=== PATIENT | male | born 1965 ===

== ENCOUNTER → 2018-12-11 | Outpatient (CLI) | payer OTHER ==
[~2018-12-11] MED LIST: ASPI81CH PO; ATOR20 PO; CHLO25 PO; Diovan Hct 1601 EACH PO; FOLI1 PO; IRBE150 PO; LISHYD1012 PO; LOVA40 PO; Metformin PO; THERA1 EACH PO; THIA100 PO
== END | disposition home or self-care (01) ==
LOC: LAB SHORT 18:02 → LAB 18:02 → LAB SHORT 12-13 18:02
PROVIDERS: Family Medicine
DX: E87.1 Hypo-osmolality and hyponatremia (principal); G72.1 Alcoholic myopathy; R53.83 Other fatigue
CPT/HCPCS: 81050; 82570; 84300

== ENCOUNTER 2023-04-28 08:45 | Day surgery (SDC) | payer OTHER ==
[~2023-04-28] VITALS: Ht 177.8 cm; Wt 82.8 kg
[2023-04-28] MEDS ORDERED: GABA300 (09:31)
[2023-04-28] MEDS ORDERED: GLIP5 (09:31)
[2023-04-28] MEDS ORDERED: OZEMPIC1 MG/0.72 (09:32)
[2023-04-28 11:05] VITALS: BP 118/84
== END 2023-04-28 11:00 | disposition home or self-care (01) ==
LOC: ORSCSDS 08:45
PROVIDERS: Internal Medicine Gastroenterology
PROC: 0DBL8ZX Excision of Transverse Colon, Via Natural or Artificial Opening Endoscopic, Diagnostic (ICD-10-PCS; principal; 2023-04-28 10:15)
DX: Z12.11 Encounter for screening for malignant neoplasm of colon (principal); Z86.010 Personal history of colon polyps; D12.3 Benign neoplasm of transverse colon; K64.4 Residual hemorrhoidal skin tags; E11.9 Type 2 diabetes mellitus without complications; I10 Essential (primary) hypertension; E78.5 Hyperlipidemia, unspecified; K21.9 Gastro-esophageal reflux disease without esophagitis; I34.1 Nonrheumatic mitral (valve) prolapse; E66.3 Overweight; R94.31 Abnormal electrocardiogram [ECG] [EKG]; Z79.82 Long term (current) use of aspirin; Z79.84 Long term (current) use of oral hypoglycemic drugs; Z79.899 Other long term (current) drug therapy
CPT/HCPCS: 82947; 88305; J2704; J7120

== ENCOUNTER → 2024-10-10 | Outpatient (CLI) | payer OTHER ==
[~2024-10-10] MED LIST changes: +GABA300; +GLIP5; +OZEMPIC1 MG/0.72
[2024-10-10 11:59] LABS: BASOPHILS ABSOLUTE AUTO 0.06 K/mm3 (0.00-0.23); BASOPHILS PERCENT AUTO 1 % (0-2); EOSINOPHILS ABSOLUTE AUTO 0.13 K/mm3 (0.00-0.68); EOSINOPHILS PERCENT AUTO 2 % (0-6); Hematocrit 38.5 % (37.0-53.0); Hemoglobin 12.8 g/dL (13.5-17.5); IMMATURE GRAN ABSOLUTE AUTO 0.08 K/mm3 (0.00-0.10); IMMATURE GRAN PERCENT AUTO 1 % (0-1); LYMPHOCYTES ABSOLUTE AUTO 2.53 K/mm3 (0.84-5.20); LYMPHOCYTES PERCENT AUTO 33 % (21-46); MONOCYTES ABSOLUTE AUTO 0.81 K/mm3 (0.16-1.47); MONOCYTES PERCENT AUTO 10 % (4-13); Mean Corpuscular HGB Conc 33.2 g/dL (31.5-36.5); Mean Corpuscular Volume 87 fL (80-100); Mean Platelet Volume 10.6 fL (9.1-12.4); NEUTROPHILS ABSOLUTE AUTO 4.15 K/mm3 (1.96-9.15); NEUTROPHILS PERCENT AUTO 54 % (41-73); Platelet Count 229 K/mm3 (150-400); RDW Coefficient Variation 12.8 % (11.7-14.2); RDW Standard Deviation 40.8 fL (35.1-46.3); Red Blood Cell Count 4.41 M/mm3 (4.30-5.90); White Blood Cell Count 7.76 K/mm3 (4.00-11.30)
[2024-10-10 12:10] LABS: Albumin/Globulin Ratio 0.8 (0.8-1.8); Bun/Creatinine Ratio 9.9 (12.0-20.0); Calcium, Blood 9.2 mg/dL (8.5-10.1); Creatinine, Blood 0.91 mg/dL (0.60-1.20); Globulin, Blood 4.9 g/dL (2.2-4.0); Potassium, Blood 4.2 mmol/L (3.5-5.5); Total Protein, Blood 8.9 g/dL (6.4-8.2)
== END ==
LOC: LAB SHORT 11:52 → LAB 11:52
DX: R42 Dizziness and giddiness (principal)
CPT/HCPCS: 80053; 85025